=== PATIENT | female | born 1970 | race Hispanic/Latino ===

== ENCOUNTER 2022-11-30 17:58 | Emergency (ER) | payer OTHER ==
[~2022-11-30] VITALS: Ht 152.4 cm; Wt 59.0 kg
[2022-11-30 18:06] VITALS: BP 176/87; PULSE 82; RESP 16; O2SAT 99
[2022-11-30] MEDS ORDERED: AMOX1TAB16 PO (21:52)
[2022-11-30] MEDS ORDERED: CHLO118L5 TP (21:52)
[2022-11-30] MEDS ORDERED: KETOROLAC 30MG VIAL (30MG/ML) IM ONE (22:00)
== END 2022-11-30 22:26 | disposition home or self-care (01) ==
LOC: EDH 17:58
DX: K08.89 Other specified disorders of teeth and supporting structures (principal); E11.9 Type 2 diabetes mellitus without complications; Z90.49 Acquired absence of other specified parts of digestive tract
CPT/HCPCS: 99283; J1885